=== PATIENT | male | born 1960 | race Caucasian/White ===

== ENCOUNTER 2018-03-11 09:00 | Emergency (ER) | payer BC, OTHER, SELFPAY ==
[~2018-03-11] VITALS: Ht 170.2 cm; Wt 61.2 kg
--- NOTE | 2018-03-11 09:07 | ER.PDOC ---
General Chief Complaint: Requesting Medical Care Stated Complaint: ABD PAIN Time seen by MD: 09:06 Source: patient Exam Limitations: no limitations History of Present Illness Initial Comments Pt started with pain/burning on lower abdomen, around umbilicus, nausea, later it localized more on the RLQ, hurts to move and walk Timing/Duration: 24 hours (three days) Severity/Quality: moderate Radiation: RLQ, periumbilical Associated Symptoms: nausea/vomiting Exacerbated by: movements Relieved By: supine Allergies: Coded Allergies: miconazole (Verified Allergy, Intermediate, 03/11/18) Constitutional: no symptoms reported EENTM: no symptoms reported Respiratory: no symptoms reported Cardiovascular: no symptoms reported Gastrointestinal: see HPI Genitourinary: no symptoms reported Musculoskeletal: no symptoms reported Skin: no symptoms reported Psychiatric/Neurological: no symptoms reported Endocrine: no symptoms reported Hematologic/Lymphatic: no symptoms reported Physical Exam General Appearance: No Apparent Distress, WD/WN HEENT: PERRL/EOMI, Normal ENT Inspection, TMs Normal, Pharynx Normal Neck: Non-Tender, Full Range of Motion, Supple, Normal Inspection Respiratory: chest non-tender, lungs clear, normal breath sounds, no respiratory distress, no accessory muscle use Cardiovascular: Normal Peripheral Pulses, Regular Rate, Rhythm, No Edema, No Gallop, No JVD, No Murmur Gastrointestinal: Normal Bowel Sounds, Soft, Rebound (RLQ), Tenderness (RLQ, pain is also suprapubic) Back: Normal Inspection, No CVA Tenderness, No Vertebral Tenderness Extremities: Normal Range of Motion, Non-Tender, Normal Inspection, No Pedal Edema, No Calf Tenderness, Normal Capillary Refill, Pelvis Stable Neurologic/Psychiatric: creel clerk II-XII NML as Tested, No Motor/Sensory Deficits, Alert, Normal Mood/Affect, Oriented x 3 Skin: Normal Color, Warm/Dry Lymphatic: No Adenopathy Departure Time of Disposition: 11:49 Disposition: 01 HOME, SELF-CARE Impression: Primary Impression: Gastroenteritis and colitis, viral Condition: Stable Patient Instructions: Viral Gastroenteritis, [id number] Duration or Time Spent with Pa: RICK CAO MD Mar 11, 2018 09:07
[2018-03-11 09:09] VITALS: BP 139/82
[2018-03-11] MEDS ORDERED: NS 1000ML 1,000 ML ONE (09:26)
--- NOTE | 2018-03-11 09:27 | NUR ---
DR SHEEBA ALY IN THE ED TALKING WITH DR WALTON
[2018-03-11] MEDS ORDERED: NS 1000ML 1,000 ML IV ONE (09:30)
[2018-03-11 09:31] LABS: BASOPHIL % 0.4 % (0.0-0.2); EOSINOPHIL # 0.2 10^3/uL (0.0-0.2); EOSINOPHIL % 3.5 % (0.0-5.0); HEMOGLOBIN 14.8 g/dL (13.9-16.3); LYMPHOCYTES # 1.5 10^3/uL (1.0-4.8); LYMPHOCYTES % 28.3 % (24.0-44.0); MEAN CELL HGB CONCENTRATION 33.5 g/dL (33-37); MEAN CORP VOLUME 89.7 fL (78-100); MEAN PLATELET VOLUME 9.2 fL (7.8-11.0); MONOCYTES # 0.5 10^3/uL (0.3-0.8); MONOCYTES % 10.5 % (5.0-12.0); NEUTROPHILS % 57.3 % (41.0-85.0); RED CELL DISTRIBUTION WIDTH 13.2 % (11.5-14.5); WHITE BLOOD CELL 5.2 10^3/uL (4.5-11.0)
[2018-03-11 09:48] LABS: APPEARANCE,URINE CLEAR (CLEAR); BILIRUBIN,URINE NEGATIVE (NEGATIVE); UA COLOR YELLOW (YELLOW); UROBILINOGEN,URINE NORMAL (NEGATIVE)
[2018-03-11 09:51] LABS: CALCIUM 8.8 mg/dL (8.4-10.5); CARBON DIOXIDE 29.3 mmol/L (20.0-32)
--- NOTE | 2018-03-11 11:33 | NUR ---
CT PT BACK FROM CT
--- NOTE | 2018-03-11 11:42 | DIREP ---
PROCEDURE:CT ABDOMEN/PELVIS W/ CONTRAST COMPARISON:None. INDICATIONS:RLQ pain X 3 DAYS TECHNIQUE:Axial images were created through the abdomen and pelvis with non-ionic intravenous contrast material. Oral contrast was administered. Sagittal and coronal reconstructions were performed from source images. FINDINGS: LUNG BASES:Normal. No visible pulmonary or pleural disease. LIVER:There are small simple cysts in the inferior right hepatic lobe and lateral left hepatic lobe. BILIARY:Normal. No visible dilatation or calcification. PANCREAS:Normal. No lesion, fluid collection, ductal dilatation, or atrophy. SPLEEN:Normal. No enlargement or focal lesion. ADRENALS:Normal. No mass or enlargement. URINARY TRACT:Normal. No focal lesions or hydronephrosis. AORTA/VASCULAR:Normal. No aneurysm. RETROPERITONEUM:Normal. No mass or adenopathy. BOWEL/MESENTERY:The appendix is visualized and appears normal. There is no intestinal obstruction, free fluid, free air or mesenteric inflammatory changes. ABDOMINAL WALL:Normal. No mass or hernia. PELVIC ORGANS:Normal. No visible mass. Pelvic organs appropriate for patient age. BONES:Normal for age. No bony lesion or acute fracture. OTHER:Negative. CONCLUSION: 1. Normal appendix. No acute findings. Dictated by: Abhilash Nunez MD on 03/11/2018 at 11:34 AM
[2018-03-11 12:00] VITALS: BP 119/82
[2018-03-11 12:02] VITALS: BP 139/82
== END 2018-03-11 12:03 | disposition home or self-care (01) ==
LOC: ER 09:00
DX: A08.4 Viral intestinal infection, unspecified (principal); R11.2 Nausea with vomiting, unspecified
CPT/HCPCS: 36415; 74177; 80053; 81002; 82150; 83690; 85025; 85610; 85730; 96360; 99285; J7030; Q9963; Q9965